=== PATIENT | female | born 1945 | race Caucasian/White ===

== ENCOUNTER → 2018-02-17 18:52 | Outpatient (CLI) | payer MEDICARE, SELFPAY ==
[2018-02-17 19:45] LABS: Anion Gap 8 (5-15); BUN 14 mg/dL (7-18); BUN/Creat Ratio 17.6 RATIO (10-20); Calcium,Total 9.2 mg/dL (8.5-10.1); Chloride 101 mmol/L (98-107); Creatinine, Serum 0.79 mg/dL (0.55-1.02); EST Glomerular Filtration Rate 75 mL/min (>60); Est Glom Filt Rate - Afr Amer 91 mL/min (>60); Glucose 73 mg/dL (74-106); Potassium 4.1 mmol/L (3.5-5.1); Sodium Level 141 mmol/L (136-145)
== END ==
DX: I11.0 Hypertensive heart disease with heart failure (principal); I50.9 Heart failure, unspecified
CPT/HCPCS: 80048

== ENCOUNTER → 2018-05-29 18:40 | Outpatient (CLI) | payer MEDICARE, SELFPAY ==
[2018-05-29 19:03] LABS: Hematocrit 37.3 % (37-47); Hemoglobin 11.5 g/dl (12.0-15.0); Mean Corp Hgb Conc 30.8 g/gl (32-36); Mean Corpuscular Hgb 27.8 pg (27.0-32.0); Mean Corpuscular Volume 90.1 fL (81-99); Mean Platelet Vol. 10.8 fl (6.2-12.0); Platelet Count 217 K/mm3 (150-450); RBC Distribution Width SD 52.1 fl (35.1-43.9); Red Blood Count 4.14 M/mm3 (4.2-5.4)
[2018-05-29 19:04] LABS: Scan Indicated on CBC? Y/N NO
[2018-05-29 19:19] LABS: Vitamin B12 546 pg/mL (211-911); Vitamin D,25 Hydroxy 29.2 ng/mL (29.95-100.01)
[2018-05-29 19:28] LABS: AST(SGOT) 13 U/L (15-37); Alanine Aminotransfer ALT/SGPT 17 U/L (13-56); Albumin, Serum 3.2 g/dL (3.2-5.0); Alkaline Phosphatase 106 U/L (45-117); Anion Gap 8 (5-15); BUN 19 mg/dL (7-18); BUN/Creat Ratio 23.2 RATIO (10-20); Calcium,Total 8.5 mg/dL (8.5-10.1); Chloride 110 mmol/L (98-107); Creatinine, Serum 0.82 mg/dL (0.55-1.02); EST Glomerular Filtration Rate 73 mL/min (>60); Est Glom Filt Rate - Afr Amer 88 mL/min (>60); Globulin 3.1 g/dL (2.2-4.2); Glucose 103 mg/dL (74-106); Potassium 4.4 mmol/L (3.5-5.1); Protein, Total 6.3 g/dL (6.4-8.2); Sodium Level 144 mmol/L (136-145); Thyroid Stim Hormone (TSH) 1.06 uIU/mL (0.358-3.74)
== END ==
PROVIDERS: Visit Provider Nurse Practitioner Adult Health
DX: I11.0 Hypertensive heart disease with heart failure (principal); I50.32 Chronic diastolic (congestive) heart failure; E03.8 Other specified hypothyroidism; E56.8 Deficiency of other vitamins; E53.8 Deficiency of other specified B group vitamins
CPT/HCPCS: 80053; 82306; 82607; 84443; 85027

== ENCOUNTER → 2018-08-28 16:58 | Outpatient (CLI) | payer MEDICARE, SELFPAY ==
[2018-08-28 17:26] LABS: Hematocrit 38.9 % (37-47); Hemoglobin 11.9 g/dl (12.0-15.0); Mean Corp Hgb Conc 30.6 g/gl (32-36); Mean Corpuscular Hgb 27.1 pg (27.0-32.0); Mean Corpuscular Volume 88.6 fL (81-99); Platelet Count 203 K/mm3 (150-450); RBC Distribution Width CV 15.6 % (11.6-14.6); RBC Distribution Width SD 50.6 fl (35.1-43.9); Red Blood Count 4.39 M/mm3 (4.2-5.4); White Blood Count 6.4 K/mm3 (4.4-11.0)
[2018-08-28 17:34] LABS: Scan Indicated on CBC? Y/N NO
[2018-08-28 18:07] LABS: Vitamin B12 578 pg/mL (211-911); Vitamin D,25 Hydroxy 33.4 ng/mL (29.95-100.01)
[2018-08-28 18:13] LABS: ALB/GLOB Ratio 1.1 RATIO (0.9-2.4); AST(SGOT) 13 U/L (15-37); Alanine Aminotransfer ALT/SGPT 18 U/L (13-56); Albumin, Serum 3.4 g/dL (3.2-5.0); Alkaline Phosphatase 117 U/L (45-117); Anion Gap 7 (5-15); BUN 20 mg/dL (7-18); BUN/Creat Ratio 22.2 RATIO (10-20); Calcium,Total 8.7 mg/dL (8.5-10.1); Chloride 106 mmol/L (98-107); EST Glomerular Filtration Rate 65 mL/min (>60); Est Glom Filt Rate - Afr Amer 79 mL/min (>60); Globulin 3.1 g/dL (2.2-4.2); Glucose 74 mg/dL (74-106); Potassium 4.2 mmol/L (3.5-5.1); Protein, Total 6.5 g/dL (6.4-8.2); Sodium Level 140 mmol/L (136-145); Thyroid Stim Hormone (TSH) 1.18 uIU/mL (0.358-3.74)
--- OUTSIDE RECORDS SUMMARY | 2018-11-02 08:04 | XMS RPT_ITS ---
:1945 Author Organization OHIP Care Team Providers Name Role Phone AMPARO CASTELAN (HAO) Attending Unavailable MARISA DIETZ Attending Unavailable MARISA DIETZ Referring Unavailable MARISA DIETZ Referring Unavailable MARISA DIETZ Referring Unavailable Lauren Coughlin ELECTRIC SWITCH REPAIRER-C Attending Unavailable Lauren Coughlin ELECTRIC SWITCH REPAIRER-C Referring Unavailable Lauren Coughlin. ELECTRIC SWITCH REPAIRER-C Primary Care Unavailable GWENDOLYN JAIN Attending Unavailable Primay Care Physicia, No Primary Care Unavailable GWENDOLYN JAIN Referring Unavailable Lauren Coughlin ELECTRIC SWITCH REPAIRER-C Attending Unavailable Lauren Coughlin ELECTRIC SWITCH REPAIRER-C Attending Unavailable Lauren Coughlin. ELECTRIC SWITCH REPAIRER-C Primary Care Unavailable Lauren Coughlin ELECTRIC SWITCH REPAIRER-C Attending Unavailable Lauren Coughlin F. ELECTRIC SWITCH REPAIRER-C Primary Care Unavailable PROBLEMS PROBLEMS DATE TYPE CONDITION / CODE ATTENDING STATUS SOURCE 05/29/2018 Unknown I50.32 - Chronic Lauren Coughlin Active [place] diastolic F. ELECTRIC SWITCH REPAIRER-C Community (congestive[facility] Hospital failure / Repository I50.32(ICD-10) 05/29/2018 Unknown I10 - Essential Lauren Coughlin Active [place] (primary) F. ELECTRIC SWITCH REPAIRER-C Community hypertension / Hospital I10(ICD-10) Repository 05/29/2018 Unknown E03.8 - Other Lauren Coughlin Active [place] specified F. 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 ELECTRIC SWITCH REPAIRER-C Community E56.8(ICD-10) Hospital Repository 05/29/2018 Unknown E53.8 - Deficiency Lauren Coughlin Active [place] of other specified B F. ELECTRIC SWITCH REPAIRER-C Community group vitamins / Hospital E53.8(ICD-10) Repository 02/26/2018 Unknown I11.0 - Hypertensive GWENDOLYN JAIN Active [place] heart disease with [facility] heart failure / Hospital I11.0(ICD-10) Repository 02/16/2018 Active Essential (primary) NA Active [place] hypertension / Clinic Main I10(ICD-10) [place] Repository 02/16/2018 Active Chronic diastolic NA [facility] (congestive[facility] heart [facility] Main failure / [place] I50.32(ICD-10) Repository 02/16/2018 Active Chest pain, NA Active [place] unspecified / Clinic Main R07.9(ICD-10) [place] Repository 12/22/2017 Active Unknown / FLIP, [facility] UNK(Unknown) AMPARO FERRIS) Clinic Main [place] Repository PROCEDURES PROCEDURES No Procedure Records FoundRESULTS RESULTS CBC-COMPLETE BLOOD CNT Collected: 08/28/2018 Status: F Source: [place] NO DIFF 3:15 PM [facility] REPOSITORY TYPE CODE TESTS RESULT OUT OF RANGE REFERENCE UNITS LAB L100.1000 4.4-11.0 K/mm3 Normal WBC 6.4 LAB L100.1200 4.2-5.4 M/mm3 Normal RBC 4.39 LAB L100.1300 12.0-15.0 g/dl Low HGB 11.9 LAB L100.1400 37-47 % Normal HCT 38.9 LAB L100.1500 81-99 fL Normal MCV 88.6 LAB L100.1600 27.0-32.0 pg Normal MCH 27.1 LAB L100.1700 32-36 g/gl Low MCHC 30.6 LAB L100.1810 11.6-14.6 % High RDW CV 15.6 LAB L100.1820 35.1-43.9 fl High RDW SD 50.6 LAB L100.1900 150-450 K/mm3 Normal PLT 203 LAB L100.2000 6.2-12.0 fl Normal MPV 10.0 Performed By: #### L100.0500 #### [facility] [address] [place], [address] VITAMIN B12 Collected: 08/28/2018 Status: F Source: [place] 3:15 PM [facility] REPOSITORY TYPE CODE TESTS RESULT OUT OF RANGE REFERENCE UNITS LAB L503.0105 211-911 pg/mL Normal Vitamin B12 578 Performed By: #### L503.0105, L506.1000 #### [facility] [address] [facility] [place], [address] VITAMIN D,25 HYDROXY Collected: 08/28/2018 Status: F Source: [place] 3:15 PM [facility] REPOSITORY TYPE CODE TESTS RESULT OUT OF RANGE REFERENCE UNITS LAB L506.1000 29.95-100.01 ng/mL Normal Vitamin D 33.4 25-OH Result Comment: Vitamin D 25(OH) Status Range Deficiency <20 ng/mL (50nmol/L) Insuffciency 20 - 30 ng/mL (50 - 75 nmol/L) Sufficiency 30 - 100 ng/mL (75 - 250 nmol/L) Toxicity >100 ng/mL (>250 nmol/L) Performed By: #### L503.0105, L506.1000 #### [facility] [address] [place], [address] COMPREHENSIVE METABOLIC Collected: 08/28/2018 Status: F Source: [facility] 3:15 PM [facility] REPOSITORY TYPE CODE TESTS RESULT OUT OF RANGE REFERENCE UNITS LAB L501.0100 74-106 mg/dL Normal GLU 74 Result Comment: Please note revised GLUCOSE reference range effective 2017. LAB L501.1000 7-18 mg/dL High BUN 20 LAB L501.1100 0.55-1.02 mg/dL Normal CREAT,SERUM 0.90 Result Comment: The validity of the calculated GFR AND GFRAA in patients over 70 years has not been determined. Clinical correlation is essential. LAB L501.1110 >60 mL/min Normal EST GFR 65 Result Comment: Non- GFR Calc LAB L501.1115 >60 mL/min Normal EST GFR - AA 79 Result Comment: GFR Calc LAB L501.1300 10-20 RATIO High BUN/CRE 22.2 LAB L501.1500 6.4-8.2 g/dL T Normal PROT 6.5 LAB L501.1800 3.2-5.0 g/dL Normal ALB 3.4 LAB L501.1950 2.2-4.2 g/dL Normal GLOB 3.1 LAB L501.2000 0.9-2.4 RATIO Normal A/G 1.1 LAB L501.2200 8.5-10.1 mg/dL CA Normal 8.7 LAB L501.4100 15-37 U/L Low AST 13 LAB L501.4305 45-117 U/L Normal ALK P 117 LAB L501.4405 13-56 U/L Normal ALT 18 LAB L501.4600 0.20-1.00 mg/dL T Normal BILI 0.30 LAB L501.5300 136-145 mmol/L NA Normal 140 LAB L501.5600 3.5-5.1 mmol/L K Normal 4.2 LAB L501.5900 98-107 mmol/L CL Normal 106 LAB L501.6100 21.0-32.0 mmol/L Normal CO2 27.0 LAB L501.6200 5-15 Normal GAP 7 Performed By: #### L500.4050, L501.9520 #### [facility] [address] [place], [place], [address] THYROID STIM HORMONE Collected: 08/28/2018 Status: F Source: [place] (TSH) 3:15 PM [facility] REPOSITORY TYPE CODE TESTS RESULT OUT OF RANGE REFERENCE UNITS LAB L501.9520 0.358-3.74 uIU/mL Normal TSH 1.18 Performed By: #### L500.4050, L501.9520 #### [facility] [address] [place], [place], [address] CBC-COMPLETE BLOOD CNT Collected: 05/29/2018 Status: F Source: [place] NO DIFF 3:50 PM [facility] REPOSITORY Order Comment: FAX RESULTS TO @[id number] TYPE CODE TESTS RESULT OUT OF RANGE REFERENCE UNITS LAB L100.1000 4.4-11.0 K/mm3 Normal WBC 6.0 LAB L100.1200 4.2-5.4 M/mm3 Low RBC 4.14 LAB L100.1300 12.0-15.0 g/dl Low HGB 11.5 LAB L100.1400 37-47 % Normal HCT 37.3 LAB L100.1500 81-99 fL Normal MCV 90.1 LAB L100.1600 27.0-32.0 pg Normal MCH 27.8 LAB L100.1700 32-36 g/gl Low MCHC 30.8 LAB L100.1810 11.6-14.6 % High RDW CV 16.0 LAB L100.1820 35.1-43.9 fl High RDW SD 52.1 LAB L100.1900 150-450 K/mm3 Normal PLT 217 LAB L100.2000 6.2-12.0 fl Normal MPV 10.8 Performed By: #### L100.0500 #### [facility] [address] [place], [place], [address] VITAMIN B12 Collected: 05/29/2018 Status: F Source: [place] 3:50 PM [facility] REPOSITORY Order Comment: FAX RESULTS TO @[id number] TYPE CODE TESTS RESULT OUT OF RANGE REFERENCE UNITS LAB L503.0105 211-911 pg/mL Normal Vitamin B12 546 Performed By: #### L503.0105, L506.1000 #### [facility] [address] [place], [address] VITAMIN D,25 HYDROXY Collected: 05/29/2018 Status: F Source: [place] 3:50 PM [facility] REPOSITORY Order Comment: FAX RESULTS TO @[id number] TYPE CODE TESTS RESULT OUT OF REFERENCE UNITS RANGE LAB L506.1000 29.95-100.01 ng/mL Low Vitamin D 29.2 25-OH Result Comment: Vitamin D 25(OH) Status Range Deficiency <20 ng/mL (50nmol/L) Insuffciency 20 - 30 ng/mL (50 - 75 nmol/L) Sufficiency 30 - 100 ng/mL (75 - 250 nmol/L) Toxicity >100 ng/mL (>250 nmol/L) Performed By: #### L503.0105, L506.1000 #### [facility] [address] [place], [address] COMPREHENSIVE METABOLIC Collected: 05/29/2018 Status: F Source: [place] [facility] 3:50 PM [facility] REPOSITORY Order Comment: FAX RESULTS TO @[id number] TYPE CODE TESTS RESULT OUT OF RANGE REFERENCE UNITS LAB L501.0100 74-106 mg/dL Normal GLU 103 Result Comment: Fasting Glucose result from 100 to 125 mg/dL suggests IMPAIRED HOMEOSTASIS per A.D.A. criteria. Please note revised GLUCOSE reference range effective 2017. LAB L501.1000 7-18 mg/dL High BUN 19 LAB L501.1100 0.55-1.02 mg/dL Normal CREAT,SERUM 0.82 Result Comment: The validity of the calculated GFR AND GFRAA in patients over 70 years has not been determined. Clinical correlation is essential. LAB L501.1110 >60 mL/min Normal EST GFR 73 Result Comment: Non- GFR Calc LAB L501.1115 >60 mL/min Normal EST GFR - AA 88 Result Comment: GFR Calc LAB L501.1300 10-20 RATIO High BUN/CRE 23.2 LAB L501.1500 6.4-8.2 g/dL Low T PROT 6.3 LAB L501.1800 3.2-5.0 g/dL Normal ALB 3.2 LAB L501.1950 2.2-4.2 g/dL Normal GLOB 3.1 LAB L501.2000 0.9-2.4 RATIO Normal A/G 1.0 LAB L501.2200 8.5-10.1 mg/dL CA Normal 8.5 LAB L501.4100 15-37 U/L Low AST 13 LAB L501.4305 45-117 U/L Normal ALK P 106 LAB L501.4405 13-56 U/L Normal ALT 17 LAB L501.4600 0.20-1.00 mg/dL T Normal BILI 0.40 LAB L501.5300 136-145 mmol/L NA Normal 144 LAB L501.5600 3.5-5.1 mmol/L K Normal 4.4 LAB L501.5900 98-107 mmol/L High CL 110 LAB L501.6100 21.0-32.0 mmol/L Normal CO2 26.0 LAB L501.6200 5-15 Normal GAP 8 Performed By: #### L500.4050, L501.9520 #### [facility] [address] [facility] [place], [place], [address] THYROID STIM HORMONE Collected: 05/29/2018 Status: F Source: [place] (TSH) 3:50 PM [facility] REPOSITORY Order Comment: FAX RESULTS TO @[id number] TYPE CODE TESTS RESULT OUT OF RANGE REFERENCE UNITS LAB L501.9520 0.358-3.74 uIU/mL Normal TSH 1.06 Performed By: #### L500.4050, L501.9520 #### [facility] [address] [facility] [place], [place], [address] BASIC METABOLIC Collected: 02/17/2018 Status: F Source: [place] PROFILE (BMP) 12:00 AM [facility] REPOSITORY TYPE CODE TESTS RESULT OUT OF RANGE REFERENCE UNITS LAB L501.0100 74-106 mg/dL Low GLU 73 Result Comment: Please note revised GLUCOSE reference range effective 2017. LAB L501.1000 7-18 mg/dL Normal BUN 14 LAB L501.1100 0.55-1.02 mg/dL Normal CREAT,SERUM 0.79 Result Comment: The validity of the calculated GFR AND GFRAA in patients over 70 years has not been determined. Clinical correlation is essential. LAB L501.1110 >60 mL/min Normal EST GFR 75 Result Comment: Non- GFR Calc LAB L501.1115 >60 mL/min Normal EST GFR - AA 91 Result Comment: GFR Calc LAB L501.1300 10-20 RATIO Normal BUN/CRE 17.6 LAB L501.2200 8.5-10.1 mg/dL CA Normal 9.2 LAB L501.5300 136-145 mmol/L NA Normal 141 LAB L501.5600 3.5-5.1 mmol/L K Normal 4.1 LAB L501.5900 98-107 mmol/L CL Normal 101 LAB L501.6100 21.0-32.0 mmol/L Normal CO2 32.0 LAB L501.6200 5-15 Normal GAP 8 Performed By: #### L500.2500 #### [facility] [address] [place], [address] BASIC METABOLIC PANL Collected: 02/16/2018 Status: F Source: [place] 3:07 PM [facility] REPOSITORY TYPE CODE TESTS RESULT OUT OF REFERENCE UNITS RANGE LAB GLU 74-99 mg/dL Glucose 94 Result Comment: The [place] [employer] (ADA) provides guidance for cutoff values for fasting glucose and random glucose. The ADA defines fasting as no caloric intake for at least 8 hours. Fas ting plasma glucose results between 100 to 125 mg/dL indicate increased risk for diabetes (prediabetes). Fasting plasma glucose results greater than or equal to 126 mg/dL meet the criteria for diagnosis of diabetes. In the absence of unequivocal hyperglycemia, results should be confirmed by repeat testing. In a patient with classic symptoms of hyperglycemia or hyperglycemic crisis, random plasma glucose results greater than or equal to 200 mg/dL meet the criteria for diagnosis of diabetes. Reference: Standards of Medical Care in Diabetes 2016, [place] [employer] Association. Diabetes Care. 2016.39(Suppl 1). LAB BUN 7-21 mg/dL BUN 19 LAB CRET 0.58-0.96 mg/dL Creatinine High 1.05 LAB NA 136-144 mmol/L Sodium 142 LAB K 3.7-5.1 mmol/L Potassium 4.9 LAB CL 97-105 mmol/L Chloride 100 LAB CO2 22-30 mmol/L CO2 27 LAB AGAP 9-18 mmol/L Anion Gap 15 LAB CA 8.5-10.2 mg/dL Calcium, Total 9.6 LAB GFRAA eGFR- Amer. >60 LAB GFRNAA . eGFR-All Other Races 52 Result Comment: eGFR (Estimated GFR) Units of measure: mL/min/1.73 meters squared eGFR is derived from the reexpressed MDRD Study equation using the following parameters: serum creatinine, age, gender and race. The creatinine assay has been calibrated to be traceable to IDMS. An eGFR <60 mL/min/1.73m2 for >3 months is consistent with chronic kidney disease. Refer to KDOQI guidelines for clinical interpretation. In patients with unstable renal function, e.g. those with acute kidney injury, the eGFR may not accurately reflect actual GFR. Performed By: #### BMP, MG1 #### [facility] [address] [place], [place] [address] MAGNESIUM Collected: 02/16/2018 Status: F Source: [place] 3:07 PM [facility] REPOSITORY TYPE CODE TESTS RESULT OUT OF REFERENCE UNITS RANGE LAB MG 1.7-2.3 mg/dL Magnesium 2.2 Performed By: #### BMP, MG1 #### [facility] [address] [place], [place] [address] PROGRESS Observed: 02/16/2018 Status: COMPLETED Source: [place] 2:48 PM [facility] REPOSITORY HNO ID: [id number] Author: Marisa Dietz Service: (none) Author Type: Physician Type: Progress Notes Filed: 02/16/2018 5:00 PM Note Text: PERTINENT CARDIAC HISTORY HTN HL CHF - diastolic OBIE - CPAP Chest pain ADHERENCE TO GUIDELINES VALORIE-I or ARB for HF with prior LVEF<40 (NQF 0081) - N/A ASA or Plavix for ASHD (NQF 0067) - met Beta arturo for ASHD with prior MS or prior LVEF<40 (NQF 0070) - N/A Beta arturo for HF with prior LVEF<40 (NQF 0083) - N/A VALORIE-I or ARB for ASHD with DM or prior LVEF<40 (NQF 0066) - N/A Statin therapy for ASHD or FHL or DM - met BMI documented and plan if >25 (NQF 0421) - lifestyle recommendation form Tobacco use screening and referral (NQF 0028) - lifestyle recommendation form Recommendation for whole food, plant based diet - lifestyle recommendation form CLINICAL IMPRESSION/PLAN: Ivet Alvarado is encouraged to observe her salt and caloric restrictions. There is little fluid overloaded today. Basic profile will be checked. Echocardiogram has been ordered for follow-up of her valvular heart disease. This will be scheduled for her in the near future. Chest pain pattern is stable. She has declined further investigation at this time. Her chest discomfort has not been progressive. She is encouraged to use nitroglycerin and let me know if the pattern worsens. She will be seen back in 8 months or as needed. Written and verbal health teaching given to patient, patient verbalizes understanding and agrees with treatment plan. DIAGNOSIS FOR VISIT: CHF Hypertension HISTORY OF PRESENT ILLNESS Ivet Alvarado returns for follow-up of multiple cardiac issues, as noted above. She is seen today on request of her nurse practitioner, who noted a several pound weight gain and increased edema. Her Lasix was increased. She has been eating more out of the garden and adding more salt. Add. Her weight has been up and down 5 pounds but has been within the same general range. She reports stable exercise tolerance. She has taken nitroglycerin infrequently. She continues to have intermittent aching in the left pectoral area. The pattern has been stable. This can last for minutes up to hours and is nonexertional. She reports no orthopnea. She's had minimal edema. She denies syncope, TIAs, amaurosis and claudication. She's had minimal palpitations. ALLERGIES: ALLERGIES No Known Allergies CURRENT OUTPATIENT MEDICATIONS: furosemide (LASIX) 20 mg tablet Take 1.5 tablets by mouth once daily as needed. pravastatin (PRAVACHOL) 40 mg tablet Take 1 tablet by mouth daily at bedtime. traMADol (ULTRAM) 50 mg tablet therapeutic multivitamin w/ iron (THERAPY M) 9 mg iron-400 mcg tablet Take 1 tablet by mouth once daily. rphxbjq-bhvcmpwdc-cgewqwt D3 (OYSTER SHELL CALCIUM-VITAMIN D) 500 mg(1,250mg) -200 unit per tablet Take 1 tablet by mouth once daily. busPIRone (BUSPAR) 5 mg tablet TAKE 1 TABLET BY MOUTH TWICE DAILY PARoxetine (PAXIL) 20 mg tablet GIVE 1 TABLET BY MOUTH ONCE DAILY docusate sodium (COLACE) 100 mg capsule GIVE 1 CAPSULE BY MOUTH TWICE DAILY VITAMIN C 500 mg tablet TAKE 1 TABLET BY MOUTH TWICE DAILY. fluticasone-vilanterol (BREO ELLIPTA) 100-25 mcg/dose inhaler Inhale 1 Inhalation as instructed once daily. DEXILANT 60 mg CpDM TAKE 1 CAPLET BY MOUTH ONCE DAILY metoprolol tartrate, short acting, (LOPRESSOR) 50 mg tablet Take 1 tablet by mouth twice daily. albuterol HFA (VENTOLIN HFA) 90 mcg/actuation inhaler Inhale 2 Puffs as instructed every 4 hours as needed. diclofenac, EC, (VOLTAREN) 75 mg EC tablet Take 1 tablet by mouth twice daily. albuterol (PROVENTIL) 2.5 mg /3 mL (0.083 %) nebulizer solution Use 3 mL via nebulizer four times daily as needed. nitroglycerin sublingual (NITROQUICK) 0.4 mg SL tablet Dissolve 1 tablet under the tongue as needed. FOR CHEST PAIN. IF NO RELIEF CALL 911 aspirin, enteric coated (ASPIR-81) 81 mg EC tablet Take 1 tablet by mouth once daily. INCRUSE ELLIPTA 62.5 mcg/actuation inhaler INHALE 1 PUFF ORALLY ONCE DAILY *DO NOT CLICK OPEN UNTIL READY FOR DOSE* (REPLACES SPIRIVA) *CALL PHARMACY FOR REFILLS* peg 3350-electrolytes (COLYTE) 240-22.72-6.72 -5.84 gram solution Take 4000 ml as directed. Follow written instructions from the doctor's office. COMPOUNDED PRESCRIPTION Raised Toilet seat esqff-3g-rpz-epa-fish oil (OMEGA 3) 350-400 mg cap Take by mouth. COMPOUNDED PRESCRIPTION Oxygen 2LPM per nasal cannula - Use with activity [employer] [facility] [place], [place] c pap supplies dx copd 496 [employer] [facility] [place], [place] Shower bench dx arthritis in both knees 716.96 copd 496 COMPOUNDED PRESCRIPTION CPAP setting at 18 cm H2O with heated humidification mask (per patient preference) and lifetime supplies DX OBIE 327.23 PHYSICAL EXAMINATION: VITAL SIGNS: BP 112/69 Pulse 60 Wt 272 lb 4.8 oz (123.5kg) Chest: Clear to percussion and auscultation. There is mild expiratory prolongation. Trachea is midline. Air entry is equal. Cardiac: Regular rhythm. S1 and S2 are normal. PMI is nondisplaced. There is a soft systolic ejection murmur. Carotids are brisk without bruits. JVP is less than 10 cm. Abdomen: Soft and nontender. There are no pulsatile masses or bruits. No liver enlargement. Bowel sounds are active. Extremities: Trace edema. Pulses are intact and symmetrical. EKG shows sinus bradycardia. There is no change from 08/08/15. Laboratory studies are due. Electronically Signed: Marisa Dietz MD February 16, 2018 2:48 PM CC: No primary care provider on file. EKG1 Observed: 02/16/2018 Status: F Source: [place] 2:25 PM [facility] REPOSITORY NAME : IVET ALVARADO PID : [id number] : 1945 Gender : Female Race : ORD : Procedure Date : Feb 16 2018 14:25:50 Edit Date : Feb 17 2018 08:30:40 Diagnosis:SINUS BRADYCARDIA OTHERWISE NORMAL ECG Confirmed by KAYY BROWN D.O. ([id number]) on 02/17/2018 8:30:37 AM Ventricular Rate : 59 BPM Atrial Rate : 59 BPM P-R Interval : 160 ms QRS Duration : 76 ms Q-T Interval : 400 ms QTC Calculation(Bezet) : 396 ms P [place] : 52 degrees R [place] : 27 degrees T [place] : 60 degrees Test Reason : Location : 136 : [place] Overread By : KAYY BROWN D.O. Edited By : KAYY BROWN D.O. Referred By : J LUIS Acquired by : HOLLIS SPAULDING Observed: 02/16/2018 Status: COMPLETED Source: [place] 2:00 PM [facility] REPOSITORY Office Visit (CAWSTR) IVET ALVARADO ([id number]) 1945 F Date Time Provider Department 02/16/18 2:00 PM MARISA DIETZ During your visit today, we recorded the following information about you: Pulse Blood pressure Weight 60/minute 112/69 123.5 kg Marisa Dietz MD 02/16/2018 5:00 PM Signed PERTINENT CARDIAC HISTORY HTN HL CHF - diastolic OBIE - CPAP Chest pain ADHERENCE TO GUIDELINES VALORIE-I or ARB for HF with prior LVEF<40 (NQF 0081) - N/A ASA or Plavix for ASHD (NQF 0067) - met Beta arturo for ASHD with prior MS or prior LVEF<40 (NQF 0070) - N/A Beta arturo for HF with prior LVEF<40 (NQF 0083) - N/A VALORIE-I or ARB for ASHD with DM or prior LVEF<40 (NQF 0066) - N/A Statin therapy for ASHD or FHL or DM - met BMI documented and plan if >25 (NQF 0421) - lifestyle recommendation form Tobacco use screening and referral (NQF 0028) - lifestyle recommendation form Recommendation for whole food, plant based diet - lifestyle recommendation form CLINICAL IMPRESSION/PLAN: Ivet Alvarado is encouraged to observe her salt and caloric restrictions. There is little fluid overloaded today. Basic profile will be checked. Echocardiogram has been ordered for follow-up of her valvular heart disease. This will be scheduled for her in the near future. Chest pain pattern is stable. She has declined further investigation at this time. Her chest discomfort has not been progressive. She is encouraged to use nitroglycerin and let me know if the pattern worsens. She will be seen back in 8 months or as needed. Written and verbal health teaching given to patient, patient verbalizes understanding and agrees with treatment plan. DIAGNOSIS FOR VISIT: CHF Hypertension HISTORY OF PRESENT ILLNESS Ivet Alvarado returns for follow-up of multiple cardiac issues, as noted above. She is seen today on request of her nurse practitioner, who noted a several pound weight gain and increased edema. Her Lasix was increased. She has been eating more out of the garden and adding more salt. Add. Her weight has been up and down 5 pounds but has been within the same general range. She reports stable exercise tolerance. She has taken nitroglycerin infrequently. She continues to have intermittent aching in the left pectoral area. The pattern has been stable. This can last for minutes up to hours and is nonexertional. She reports no orthopnea. She's had minimal edema. She denies syncope, TIAs, amaurosis and claudication. She's had minimal palpitations. ALLERGIES: ALLERGIES No Known Allergies CURRENT OUTPATIENT MEDICATIONS: furosemide (LASIX) 20 mg tablet Take 1.5 tablets by mouth once daily as needed. pravastatin (PRAVACHOL) 40 mg tablet Take 1 tablet by mouth daily at bedtime. traMADol (ULTRAM) 50 mg tablet therapeutic multivitamin w/ iron (THERAPY M) 9 mg iron-400 mcg tablet Take 1 tablet by mouth once daily. bvljhdg-vehpcysno-ziyfgtf D3 (OYSTER SHELL CALCIUM-VITAMIN D) 500 mg(1,250mg) -200 unit per tablet Take 1 tablet by mouth once daily. busPIRone (BUSPAR) 5 mg tablet TAKE 1 TABLET BY MOUTH TWICE DAILY PARoxetine (PAXIL) 20 mg tablet GIVE 1 TABLET BY MOUTH ONCE DAILY docusate sodium (COLACE) 100 mg capsule GIVE 1 CAPSULE BY MOUTH TWICE DAILY VITAMIN C 500 mg tablet TAKE 1 TABLET BY MOUTH TWICE DAILY. fluticasone-vilanterol (BREO ELLIPTA) 100-25 mcg/dose inhaler Inhale 1 Inhalation as instructed once daily. DEXILANT 60 mg CpDM TAKE 1 CAPLET BY MOUTH ONCE DAILY metoprolol tartrate, short acting, (LOPRESSOR) 50 mg tablet Take 1 tablet by mouth twice daily. albuterol HFA (VENTOLIN HFA) 90 mcg/actuation inhaler Inhale 2 Puffs as instructed every 4 hours as needed. diclofenac, EC, (VOLTAREN) 75 mg EC tablet Take 1 tablet by mouth twice daily. albuterol (PROVENTIL) 2.5 mg /3 mL (0.083 %) nebulizer solution Use 3 mL via nebulizer four times daily as needed. nitroglycerin sublingual (NITROQUICK) 0.4 mg SL tablet Dissolve 1 tablet under the tongue as needed. FOR CHEST PAIN. IF NO RELIEF CALL 911 aspirin, enteric coated (ASPIR-81) 81 mg EC tablet Take 1 tablet by mouth once daily. INCRUSE ELLIPTA 62.5 mcg/actuation inhaler INHALE 1 PUFF ORALLY ONCE DAILY *DO NOT CLICK OPEN UNTIL READY FOR DOSE* (REPLACES SPIRIVA) *CALL PHARMACY FOR REFILLS* peg 3350-electrolytes (COLYTE) 240-22.72-6.72 -5.84 gram solution Take 4000 ml as directed. Follow written instructions from the doctor's office. COMPOUNDED PRESCRIPTION Raised Toilet seat [id number]-2p-fgk-epa-fish oil (OMEGA 3) 350-400 mg cap Take by mouth. COMPOUNDED PRESCRIPTION Oxygen 2LPM per nasal cannula - Use with activity [employer] [facility] [place], [place] c pap supplies dx copd 496 [employer] [facility] [place], [place] Shower bench dx arthritis in both knees 716.96 copd 496 COMPOUNDED PRESCRIPTION CPAP setting at 18 cm H2O with heated humidification mask (per patient preference) and lifetime supplies DX OBIE 327.23 PHYSICAL EXAMINATION: VITAL SIGNS: BP 112/69 Pulse 60 Wt 272 lb 4.8 oz (123.5kg) Chest: Clear to percussion and auscultation. There is mild expiratory prolongation. Trachea is midline. Air entry is equal. Cardiac: Regular rhythm. S1 and S2 are normal. PMI is nondisplaced. There is a soft systolic ejection murmur. Carotids are brisk without bruits. JVP is less than 10 cm. Abdomen: Soft and nontender. There are no pulsatile masses or bruits. No liver enlargement. Bowel sounds are active. Extremities: Trace edema. Pulses are intact and symmetrical. EKG shows sinus bradycardia. There is no change from 08/08/15. Laboratory studies are due. Electronically Signed: Marisa Dietz MD February 16, 2018 2:48 PM CC: No primary care provider on file. Marisa Dietz MD 02/16/2018 2:48 PM Signed LIFESTYLE CHANGE A healthy lifestyle is the most important component of your overall treatment plan. 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 EAT A WHOLE FOOD, PLANT BASED DIET The nutrition your body gets is more important than the medicine you take. What matters most is the overall way you eat. We encourage you to minimize the use of animal products (which include dairy and all meats except fatty fish) and use whole, unprocessed plant foods to provide your protein, vitamins and other nutrients. We have a lot of information to share with you on this topic. This is not a diet. It is a way of life that you will keep with you. EXERCISE REGULARLY It is not important to spend hours in the gym, lifting weights and perspiring heavily. A total of 2-3 hours per week of aerobic (causing you to be moderately short of breath) exercise is sufficient to improve your health. Talk to us before you begin a new exercise program, if you have heart disease or experience shortness of breath or chest pain. REDUCE STRESS Chronic emotional and physical stress leads to disease. Ways of reducing stress include meditation, visualization, prayer, yoga and other forms of relaxation therapy. Consistency is the gates. Find a technique that works for you and do it every day. CULTIVATE RELATIONSHIPS Loneliness and isolation have a major negative impact on health. Seek out others who can love, care for and nurture you. Avoid hurtful relationships. MAINTAIN IDEAL BODY WEIGHT The best way to do this is to do all the things above. Our bodies naturally find the right weight if we keep moving and feed ourselves the right food. If your BMI is greater than 25, we strongly recommend a referral to a weight management program. Please speak to us or your family physician about available programs. AVOID NICOTINE IN ALL FORMS This includes all tobacco products, whether chewed, smoked, vaped, or rubbed on the skin. Smoking cessation programs, which can make use of tobacco substitutes, medications to suppress cravings and behavior management, are available. Please contact your family physician about programs in your area. Referring Provider: MARISA DIETZ [[id number]] Allergies As of Date: 02/16/2018 (No Known Allergies) Date Reviewed: 02/16/2018 Reviewed by: Yandy (Rn) STEVE Spaulding - Fully Assessed Reason for Visit: Established Patient [175] Primary Visit Diagnosis:Essential hypertension [I10] Other Visit Diagnoses:Chronic diastolic CHF (congestive heart failure) (HCC) [I50.32] Chest pain, unspecified type [R07.9] Order(s):ECG COMPLETE W INTERPRETATION [ECG01] Order #: [id number] FUTURE aspirin, enteric coated (ASPIR-81) 81 mg EC tabletTake 1 tablet by mouth once daily.Disp: Rfl: furosemide (LASIX) 20 mg tabletTake 1.5 tablets by mouth once daily as needed.Disp: Rfl: BASIC METABOLIC PNL [SQBMP] Order #: [id number] FUTURE MAGNESIUM BLD [SQMG1] Order #: [id number] FUTURE Prescriptions as of 02/16/2018 Sig: FUROSEMIDE 20 MG TABLET Take 1.5 tablets by mouth onc* PRAVASTATIN 40 MG TABLET Take 1 tablet by mouth daily * TRAMADOL 50 MG TABLET MULTIVITAMIN-IRON 9 MG-FOLIC * Take 1 tablet by mouth once d* CALCIUM CARBONATE 500 MG (1,2* Take 1 tablet by mouth once d* BUSPIRONE 5 MG TABLET TAKE 1 TABLET BY MOUTH TWICE * PAROXETINE 20 MG TABLET GIVE 1 TABLET BY MOUTH ONCE D* DOCUSATE SODIUM 100 MG CAPSULE GIVE 1 CAPSULE BY MOUTH TWICE* VITAMIN C 500 MG TABLET TAKE 1 TABLET BY MOUTH TWICE * FLUTICASONE 100 MCG-VILANTERO* Inhale 1 Inhalation as instru* DEXILANT 60 MG CAPSULE, DELAY* TAKE 1 CAPLET BY MOUTH ONCE D* METOPROLOL TARTRATE 50 MG TAB* Take 1 tablet by mouth twice * ALBUTEROL SULFATE HFA 90 MCG/* Inhale 2 Puffs as instructed * DICLOFENAC SODIUM 75 MG TABLE* Take 1 tablet by mouth twice * ALBUTEROL SULFATE 2.5 MG/3 ML* Use 3 mL via nebulizer four t* NITROGLYCERIN 0.4 MG SUBLINGU* Dissolve 1 tablet under the t* ASPIRIN 81 MG TABLET,DELAYED * Take 1 tablet by mouth once d* INCRUSE ELLIPTA 62.5 MCG/ACTU* INHALE 1 PUFF ORALLY ONCE EZIO* PEG 3350 240 GRAM-ELECTROLYTE* Take 4000 ml as directed. Fo* COMPOUNDED PRESCRIPTION Raised Toilet seat [id number]-* Take by mouth. COMPOUNDED PRESCRIPTION Oxygen 2LPM per nasal cannula* MISCELLANEOUS MEDICAL SUPPLY * c pap supplies dx copd 496 MISCELLANEOUS [employer] SUPPLY * Shower bench dx arthritis * * COMPOUNDED PRESCRIPTION CPAP setting at 18 cm H2O wit* Problem List As Of Date 02/16/2018 Noted Resolved COPD (chronic obstructive pulmonary disease) [J*INVALID FOR* More... Asthma [J45.909] INVALID FOR* Arthritis [M19.90] INVALID FOR* Diverticulosis of colon [K57.30] INVALID FOR* More... Sleep apnea [G47.30] INVALID FOR* More... Palpitations [R00.2] INVALID FOR* Hypertension [I10] INVALID FOR* CHF (congestive heart failure) [I50.9] INVALID FOR* Pain in joint, shoulder region [M25.519] INVALID FOR* Arthritis of shoulder region, left, degenerativ*INVALID FOR* Hypothyroidism [E03.9] More... Elevated fasting glucose [R73.01] INVALID FOR* Arthritis of knee, right [M17.11] INVALID FOR* Arthritis of knee, left [M17.12] INVALID FOR* Obesity, Class III, BMI 40-49.9 (morbid obesity*INVALID FOR* Osteopenia [M85.80] Gait instability [R26.81] INVALID FOR* More... Urinary, incontinence, stress female [N39.3] More... Other instructions from your clinician: LIFESTYLE CHANGE A healthy lifestyle is the most important component of your overall treatment plan. Please give serious thought to the following areas and commit to making usp changes. EAT A WHOLE FOOD, PLANT BASED DIET The nutrition your body gets is more important than the medicine you take. What matters most is the overall way you eat. We encourage you to minimize the use of animal products (which include dairy and all meats except fatty fish) and use whole, unprocessed plant foods to provide your protein, vitamins and other nutrients. We have a lot of information to share with you on this topic. This is not a diet. It is a way of life that you will keep with you. EXERCISE REGULARLY It is not important to spend hours in the gym, lifting weights and perspiring heavily. A total of 2-3 hours per week of aerobic (causing you to be moderately short of breath) exercise is sufficient to improve your health. Talk to us before you begin a new exercise program, if you have heart disease or experience shortness of breath or chest pain. REDUCE STRESS Chronic emotional and physical stress leads to disease. Ways of reducing stress include meditation, visualization, prayer, yoga and other forms of relaxation therapy. Consistency is the gates. Find a technique that works for you and do it every day. CULTIVATE RELATIONSHIPS Loneliness and isolation have a major negative impact on health. Seek out others who can love, care for and nurture you. Avoid hurtful relationships. MAINTAIN IDEAL BODY WEIGHT The best way to do this is to do all the things above. Our bodies naturally find the right weight if we keep moving and feed ourselves the right food. If your BMI is greater than 25, we strongly recommend a referral to a weight management program. Please speak to us or your family physician about available programs. AVOID NICOTINE IN ALL FORMS This includes all tobacco products, whether chewed, smoked, vaped, or rubbed on the skin. Smoking cessation programs, which can make use of tobacco substitutes, medications to suppress cravings and behavior management, are available. Please contact your family physician about programs in your area. Prescriptions ordered this encounter Disp Refills Start End ASPIRIN 81 MG TABLET,DELAYED RELEASE 02/16/2018 Class: Med Update Route: ORAL Sig: Take 1 tablet by mouth once daily. FUROSEMIDE 20 MG TABLET 02/16/2018 Class: Med Update Route: ORAL Sig: Take 1.5 tablets by mouth once daily as needed. Medications Discontinued During This Encounter furosemide (LASIX) 20 mg tablet 30 t* 6 09/11/2015 02/16/2018 Route: ORAL Sig: Take 1 tablet by mouth once daily as needed. Patient taking differently: Take 30 mg by mouth once daily as needed. Disc: Reason for discontinue is not on file. Encounter Status:Closed by MARISA DIETZ MD on 02/16/18 PROGRESS Observed: 02/05/2018 Status: COMPLETED Source: [place] 10:14 AM [facility] REPOSITORY HNO ID: [id number] Author: Alyse Morales Disposition Clerk Service: (none) Author Type: (none) Type: Progress Notes Filed: 02/05/2018 10:15 AM Note Text: Patient is getting home health care. Different physician. Removed dr. forbes as pcp. PROGRESS Observed: 02/05/2018 Status: COMPLETED Source: [place] 10:05 AM [facility] REPOSITORY HNO ID: [id number] Author: Alyse Morales Disposition Clerk Service: (none) Author Type: (none) Type: Progress Notes Filed: 02/05/2018 10:15 AM Note Text: PHMA TEAMLET DOCUMENTATION Provider Action/FYI: Please file labs. PSR Action/FYI: Teamlet has identified patient by name and date of . Team: Dr.Talampas Sarah Griffin Myself ? Last Office Visit:Visit date not found ? Next Office Visit: Visit date not found ? Last BP/Labs: Blood Pressure: Last 3 Encounter BP Readings: Date: BP: 12/22/2017 142/70 03/18/2017 138/76 08/06/2016 137/77 Lipids: Cholesterol, Total (mg/dL) Date Value 01/20/2017 146 05/19/2015 162 HDL Cholesterol (mg/dL) Date Value 01/20/2017 47 05/19/2015 58 LDL Cholesterol (mg/dL) Date Value 01/20/2017 78 05/19/2015 88 Triglyceride (mg/dL) Date Value 01/20/2017 103 05/19/2015 82 HGB A1C: Lab Results Component Value Date HBA1C 5.9 10/10/2015 HBA1C 5.7 06/11/2012 TSH: TSH (uU/mL) Date Value 10/10/2015 1.620 05/19/2015 3.150 ) Care Gap: CHF - HTN - COPD Plan: ? Confirm PCP / Status ? Type of appointment needed: Physical Labs, HM and Immunization: Health Maintenance Due: DTAP,TDAP,TD(1 - Tdap) due on 1964 HEPATITIS C SCREENING due on 1989 - order pending ZOSTER VACCINE (SHINGRIX)(1 of 2) due on 1995 MAMMOGRAM due on 10/16/2016 - order pending Alyse Morales Disposition Clerk CNPTOUTREACH Observed: 02/05/2018 Status: COMPLETED Source: [place] 12:00 AM [facility] [place] [facility] [place] RE[facility]IT[facility] Patient Outreach (INTMWS) IVET ALVARADO ([id number]) 1945 F Date Time Provider Department 02/05/18 ALYSE MORALES ([facility]) INTMWS During your visit today, we recorded the following information about you: Alyse Morales Cma 02/05/2018 10:15 AM Signed PHMA TEAMLET DOCUMENTATION Provider Action/FYI: Please file labs. PSR Action/FYI: Teamlet has identified patient by name and date of . Team: Dr.Talampas Sarah Griffin Myself ? Last Office Visit:Visit date not found ? Next Office Visit: Visit date not found ? Last BP/Labs: Blood Pressure: Last 3 Encounter BP Readings: Date: BP: 12/22/2017 142/70 03/18/2017 138/76 08/06/2016 137/77 Lipids: Cholesterol, Total (mg/dL) Date Value 01/20/2017 146 05/19/2015 162 HDL Cholesterol (mg/dL) Date Value 01/20/2017 47 05/19/2015 58 LDL Cholesterol (mg/dL) Date Value 01/20/2017 78 05/19/2015 88 Triglyceride (mg/dL) Date Value 01/20/2017 103 05/19/2015 82 HGB A1C: Lab Results Component Value Date HBA1C 5.9 10/10/2015 HBA1C 5.7 06/11/2012 TSH: TSH (uU/mL) Date Value 10/10/2015 1.620 05/19/2015 3.150 ) Care Gap: CHF - HTN - COPD Plan: ? Confirm PCP / Status ? Type of appointment needed: Physical Labs, HM and Immunization: Health Maintenance Due: DTAP,TDAP,TD(1 - Tdap) due on 1964 HEPATITIS C SCREENING due on 1989 - order pending ZOSTER VACCINE (SHINGRIX)(1 of 2) due on 1995 MAMMOGRAM due on 10/16/2016 - order pending Alyse [place] Disposition Clerk Alyse [place] Disposition Clerk 02/05/2018 10:15 AM Signed Patient is getting home health care. Different physician. Removed dr. forbes as pcp. Allergies As of Date: 02/05/2018 (No Known Allergies) Date Reviewed: 12/22/2017 Reviewed by: Amparo Castelan (Pa) - Fully Assessed Reason for Visit: PHMA/Care Gap Outreach [[id number]] Primary Visit Diagnosis:Screening mammogram, encounter for [Z12.31] Other Visit Diagnoses:Need for hepatitis C screening test [Z11.59] Essential hypertension [I10] Hypothyroidism, unspecified type [E03.9] Prescriptions as of 02/05/2018 Sig: PRAVASTATIN 40 MG TABLET Take 1 tablet by mouth daily * TRAMADOL 50 MG TABLET MULTIVITAMIN-IRON 9 MG-FOLIC * Take 1 tablet by mouth once d* CALCIUM CARBONATE 500 MG (1,2* Take 1 tablet by mouth once d* BUSPIRONE 5 MG TABLET TAKE 1 TABLET BY MOUTH TWICE * PAROXETINE 20 MG TABLET GIVE 1 TABLET BY MOUTH ONCE D* DOCUSATE SODIUM 100 MG CAPSULE GIVE 1 CAPSULE BY MOUTH TWICE* VITAMIN C 500 MG TABLET TAKE 1 TABLET BY MOUTH TWICE * FLUTICASONE 100 MCG-VILANTERO* Inhale 1 Inhalation as instru* INCRUSE ELLIPTA 62.5 MCG/ACTU* INHALE 1 PUFF ORALLY ONCE EZIO* DEXILANT 60 MG CAPSULE, DELAY* TAKE 1 CAPLET BY MOUTH ONCE D* PEG 3350 240 GRAM-ELECTROLYTE* Take 4000 ml as directed. Fo* METOPROLOL TARTRATE 50 MG TAB* Take 1 tablet by mouth twice * ALBUTEROL SULFATE HFA 90 MCG/* Inhale 2 Puffs as instructed * DICLOFENAC SODIUM 75 MG TABLE* Take 1 tablet by mouth twice * FUROSEMIDE 20 MG TABLET Take 1 tablet by mouth once d* ALBUTEROL SULFATE 2.5 MG/3 ML* Use 3 mL via nebulizer four t* NITROGLYCERIN 0.4 MG SUBLINGU* Dissolve 1 tablet under the t* COMPOUNDED PRESCRIPTION Raised Toilet seat [id number]-* Take by mouth. COMPOUNDED PRESCRIPTION Oxygen 2LPM per nasal cannula* MISCELLANEOUS MEDICAL SUPPLY * c pap supplies dx copd 496 [employer]ISCELL[employer]OUS MEDICAL SUPPLY * Shower bench dx arthritis * * COMPOUNDED PRESCRIPTION CPAP setting at 18 cm H2O wit* Problem List As Of Date 02/05/2018 Noted Resolved COPD (chronic obstructive pulmonary disease) [J*INVALID FOR* More... Asthma [J45.909] INVALID FOR* Arthritis [M19.90] INVALID FOR* Diverticulosis of colon [K57.30] INVALID FOR* More... Sleep apnea [G47.30] INVALID FOR* More... Palpitations [R00.2] INVALID FOR* Hypertension [I10] INVALID FOR* CHF (congestive heart failure) [I50.9] INVALID FOR* Pain in joint, shoulder region [M25.519] INVALID FOR* Arthritis of shoulder region, left, degenerativ*INVALID FOR* Hypothyroidism [E03.9] More... Elevated fasting glucose [R73.01] INVALID FOR* Arthritis of knee, right [M17.11] INVALID FOR* Arthritis of knee, left [M17.12] INVALID FOR* Obesity, Class III, BMI 40-49.9 (morbid obesity*INVALID FOR* Osteopenia [M85.80] Gait instability [R26.81] INVALID FOR* More... Urinary, incontinence, stress female [N39.3] More... Encounter Status:Closed by ALYSE MORALES CMA on 02/05/18 OBSOLETE Observed: 12/23/2017 Status: COMPLETED Source: [place] 12:00 AM [facility] [place] RE[facility] Refill (AGCARDWST) ANA MARIAIVET WYLIE ([id number]) 1945 F Date Time Provider Department 12/23/17 MARISA DIETZWSBill During your visit today, we recorded the following information about you: Corona Madrigal MA 12/23/2017 9:40 AM Signed Patient phones requesting refills as follows: Pending Prescriptions Disp Refills PRAVASTATIN 40 MG TABLET 30 tablet 11 Sig: Take 1 tablet by mouth daily at bedtime. GINETTE: No Please review and advise. Corona Madrigal MA Allergies As of Date: 12/23/2017 (No Known Allergies) Date Reviewed: 12/22/2017 Reviewed by: Amparo Castelan (Pa) - Fully Assessed Reason for Visit: Refill Request [94] Order(s):pravastatin (PRAVACHOL) 40 mg tabletTake 1 tablet by mouth daily at bedtime.Disp: 30 tabletRfl: 11 Prescriptions as of 12/23/2017 Sig: PRAVASTATIN 40 MG TABLET Take 1 tablet by mouth daily * TRAMADOL 50 MG TABLET MULTIVITAMIN-IRON 9 MG-FOLIC * Take 1 tablet by mouth once d* CALCIUM CARBONATE 500 MG (1,2* Take 1 tablet by mouth once d* BUSPIRONE 5 MG TABLET TAKE 1 TABLET BY MOUTH TWICE * PAROXETINE 20 MG TABLET GIVE 1 TABLET BY MOUTH ONCE D* DOCUSATE SODIUM 100 MG CAPSULE GIVE 1 CAPSULE BY MOUTH TWICE* VITAMIN C 500 MG TABLET TAKE 1 TABLET BY MOUTH TWICE * FLUTICASONE 100 MCG-VILANTERO* Inhale 1 Inhalation as instru* INCRUSE ELLIPTA 62.5 MCG/ACTU* INHALE 1 PUFF ORALLY ONCE EZIO* DEXILANT 60 MG CAPSULE, DELAY* TAKE 1 CAPLET BY MOUTH ONCE D* PEG 3350 240 GRAM-ELECTROLYTE* Take 4000 ml as directed. Fo* METOPROLOL TARTRATE 50 MG TAB* Take 1 tablet by mouth twice * ALBUTEROL SULFATE HFA 90 MCG/* Inhale 2 Puffs as instructed * DICLOFENAC SODIUM 75 MG TABLE* Take 1 tablet by mouth twice * FUROSEMIDE 20 MG TABLET Take 1 tablet by mouth once d* ALBUTEROL SULFATE 2.5 MG/3 ML* Use 3 mL via nebulizer four t* NITROGLYCERIN 0.4 MG SUBLINGU* Dissolve 1 tablet under the t* COMPOUNDED PRESCRIPTION Raised Toilet seat [id number]-* Take by mouth. COMPOUNDED PRESCRIPTION Oxygen 2LPM per nasal cannula* MISCELLANEOUS MEDICAL SUPPLY * c pap supplies dx copd 496 MISCELLANEOUS MEDICAL SUPPLY * Shower bench dx arthritis * * COMPOUNDED PRESCRIPTION CPAP setting at 18 cm H2O wit* Problem List As Of Date 12/23/2017 Noted Resolved COPD (chronic obstructive pulmonary disease) [J*INVALID FOR* More... Asthma [J45.909] INVALID FOR* Arthritis [M19.90] INVALID FOR* Diverticulosis of colon [K57.30] INVALID FOR* More... Sleep apnea [G47.30] INVALID FOR* More... Palpitations [R00.2] INVALID FOR* Hypertension [I10] INVALID FOR* CHF (congestive heart failure) [I50.9] INVALID FOR* Pain in joint, shoulder region [M25.519] INVALID FOR* Arthritis of shoulder region, left, degenerativ*INVALID FOR* Hypothyroidism [E03.9] More... Elevated fasting glucose [R73.01] INVALID FOR* Arthritis of knee, right [M17.11] INVALID FOR* Arthritis of knee, left [M17.12] INVALID FOR* Obesity, Class III, BMI 40-49.9 (morbid obesity*INVALID FOR* Osteopenia [M85.80] Gait instability [R26.81] INVALID FOR* More... Urinary, incontinence, stress female [N39.3] More... Prescriptions ordered this encounter Disp Refills Start End PRAVASTATIN 40 MG TABLET 30 t* 11 12/23/2017 Route: ORAL Sig: Take 1 tablet by mouth daily at bedtime. Medications Discontinued During This Encounter pravastatin (PRAVACHOL) 40 mg tablet 30 t* 11 01/15/2017 12/23/2017 Route: ORAL Sig: Take 1 tablet by mouth daily at bedtime. Disc: Reason for discontinue is not on file. Encounter Status:Closed by CORONA MADRIGAL MA on 12/23/17 PROGRESS Observed: 12/22/2017 Status: COMPLETED Source: [place] 1:48 PM [facility] [facility] [place] RE[facility] HNO ID: [id number] Author: Amparo Castelan) Service: (none) Author Type: Physician Appraiser Real Estate Type: Progress Notes Filed: 12/22/2017 2:35 PM Note Text: Amparo Castelan PA-C Department of Orthopaedics [facility] [address] [place] [address] Dept: [phone] Dept December 22, 2017 CHIEF COMPLAINT: Left Knee Pain HPI: Ms. Ivet Alvarado is a 72 year old female. She presents with known bilateral knee osteoarthritis. She tells me that her left knee has been very painful overt he past few months, she has increased pain with standing or with resting too long. Left knee feels swollen. She is not able to tolerate NSAIDs secondary to a cardiac dysrhythmia. She had a corticosteroid injection with Dr. Gudino in 2012, injection was helpful. She has CHF, COPD and is morbidly obese, she is not an appropriate candidate for knee arthroplasty. ASSESSMENT: M17.0 Primary osteoarthritis of both knees (primary encounter diagnosis) M25.562 Acute pain of left knee PLAN: She would like to proceed with left knee corticosteroid injection. We discussed that injection can be repeated every 3 months as needed. We can also try injecting the right knee if injection is helpful for left. She was encouraged to work on weight loss, we also discussed heat, ice and quad strengthening. FOLLOW UP INSTRUCTIONS: As needed. Ms. Ivet Alvarado was advised as to contrast therapies and/or to take analgesics/anti-inflammatories as needed and all contraindications were reviewed. OBJECTIVE: Ms. Ivet Alvarado is a pleasant 72 year old in no apparent distress. Gen:BP 142/70 Pulse 80 Ht 5' 7 (1.70m) Wt 273 lb (123.8kg) BMI 42.75 kg/(m2). nl development, obese, no deformities ENT: Normocephalic, normal hearing, moist mucosa CV: Pulses:DP/PT= 2+ and symmetric, capillary refill < 2 secs, no peripheral edema/varicosities Skin: no rash, bruising or lesions. Good turgor. Psych: cooperative and appropriate, alert and oriented x 3, good mood and affect. Musculoskeletal: KNEE EXAM: Left: Alignment: Valgus deformity, Partially Correctable Range of motion is 3 degrees in extension and 120 degrees of flexion. Extension Lag: < 10 degrees Pain with ROM: Yes Effusion: Slight Tender to the palpation of Patellar tendon, Medial femoral condyle and Medial joint line Pain with patellar compression: Yes Stability: Anterior/Posterior stable Hip Exam: flexion to 80 degrees, full extension, internal/external rotation adequate and no pain with log roll Neurovascular Status: Sensation Intact, Moves foot and ankle up AND down and 2+ dorsalis pedis Right: Alignment: Fixed Valgus Range of motion is 2 degrees in extension and 120 degrees of flexion. Extension Lag: < 10 degrees Pain with ROM: Yes Effusion: Slight Tender to the palpation of Patellar tendon Pain with patellar compression: Yes Stability: Anterior/Posterior stable and Varus/Valgus stable Hip Exam: flexion to 90+ degrees, full extension, internal/external rotation adequate and no pain with log roll Neurovascular Status: Sensation Intact, Moves foot and ankle up AND down and 2+ dorsalis pedis Procedure note: The risk, benefits and alternatives of injection and no injection therapy were discussed. The patient consented for an injection. Time out was conducted. The injection site was prepped with a Chlorhexadine swab. The left anterolateral joint was injected with a 25 gauge needle with 1 cc (6 mg) Celestone, 5 cc Lidocaine 1% Plain. The injection site was then dressed with a bandaid. The patient tolerated the injection well. The patient was instructed to call the office if any adverse local effects occurred or any if any questions or concerns arise. Amparo Castelan PA-C IMAGING: deferred today Supporting Subjective Information Below: Past Medical History: PAST MEDICAL HISTORY Diagnosis Date - Asthma - Basal cell carcinoma 03/17/2012 Forehead (Dr. Leal) - Chronic obstructive pulmonary disease (COPD) (HCC) - Congestive heart failure (HCC) - Hypertension - Hypothyroidism - Obstructive sleep apnea - Osteopenia - Postmenopausal disorder - Urinary, incontinence, stress female related to postmenopausal state as well as CHF on diuretics Past Surgical History: PAST SURGICAL HISTORY Procedure Laterality Date - COLONOSCOPY N/A 08/27/2016 [facility] - LAPAROSCOPIC CHOLEYCYSTECTOMY 11/16/[address] [facility] [address] Leal - PAST SURGICAL HISTORY OF Bilateral Breast Biopsies - negative by patient report - TOTAL ABDOM HYSTERECTOMY Age 30 Hysterectomy, [facility] Family History: FAMILY HISTORY Problem Relation Age of Onset - Breast Cancer Mother - COPD Mother - Cancer Father Eye cancer and leukemia - Hypertension Father - Diabetes Father Social History:Social History Marital status: Spouse name: Years of education: Number of children: Social History Main Topics Smoking status: Former Smoker Packs/day: 2.00 Years: 49.00 Start date: 1957 Quit date: 11/03/2005 Smokeless tobacco: Never Used Alcohol use: No Drug use: No Medications: Current Outpatient Prescriptions: traMADol (ULTRAM) 50 mg tablet therapeutic multivitamin w/ iron (THERAPY M) 9 mg iron-400 mcg tablet Take 1 tablet by mouth once daily. qhzrcei-bzounkjsj-xnpdcwm D3 (OYSTER SHELL CALCIUM-VITAMIN D) 500 mg(1,250mg) -200 unit per tablet Take 1 tablet by mouth once daily. busPIRone (BUSPAR) 5 mg tablet TAKE 1 TABLET BY MOUTH TWICE DAILY PARoxetine (PAXIL) 20 mg tablet GIVE 1 TABLET BY MOUTH ONCE DAILY docusate sodium (COLACE) 100 mg capsule GIVE 1 CAPSULE BY MOUTH TWICE DAILY VITAMIN C 500 mg tablet TAKE 1 TABLET BY MOUTH TWICE DAILY. fluticasone-vilanterol (BREO ELLIPTA) 100-25 mcg/dose inhaler Inhale 1 Inhalation as instructed once daily. INCRUSE ELLIPTA 62.5 mcg/actuation inhaler INHALE 1 PUFF ORALLY ONCE DAILY *DO NOT CLICK OPEN UNTIL READY FOR DOSE* (REPLACES SPIRIVA) *CALL PHARMACY FOR REFILLS* DEXILANT 60 mg CpDM TAKE 1 CAPLET BY MOUTH ONCE DAILY pravastatin (PRAVACHOL) 40 mg tablet Take 1 tablet by mouth daily at bedtime. peg 3350-electrolytes (COLYTE) 240-22.72-6.72 -5.84 gram solution Take 4000 ml as directed. Follow written instructions from the doctor's office. metoprolol tartrate, short acting, (LOPRESSOR) 50 mg tablet Take 1 tablet by mouth twice daily. albuterol HFA (VENTOLIN HFA) 90 mcg/actuation inhaler Inhale 2 Puffs as instructed every 4 hours as needed. diclofenac, EC, (VOLTAREN) 75 mg EC tablet Take 1 tablet by mouth twice daily. furosemide (LASIX) 20 mg tablet Take 1 tablet by mouth once daily as needed. albuterol (PROVENTIL) 2.5 mg /3 mL (0.083 %) nebulizer solution Use 3 mL via nebulizer four times daily as needed. nitroglycerin sublingual (NITROQUICK) 0.4 mg SL tablet Dissolve 1 tablet under the tongue as needed. FOR CHEST PAIN. IF NO RELIEF CALL 911 COMPOUNDED PRESCRIPTION Raised Toilet seat xuohi-5f-ddv-epa-fish oil (OMEGA 3) 350-400 mg cap Take by mouth. COMPOUNDED PRESCRIPTION Oxygen 2LPM per nasal cannula - Use with activity [employer] Misc c pap supplies dx copd 496 [employer] [facility] [place], [place] Shower bench dx arthritis in both knees 716.96 copd 496 COMPOUNDED PRESCRIPTION CPAP setting at 18 cm H2O with heated humidification mask (per patient preference) and lifetime supplies DX OBIE 327.23 No current facility-administered medications for this visit. Allergies: Patient has no known allergies. ROS: General (negative for fatigue, malaise, weight loss/gain) HEENT (negative for headache, earache, recent vision changes, sinus pain, sore throat) Respiratory (no recent shortness of breath, hemoptysis) CV (negative for chest tightness, palpitations) Musculoskeletal (see HPI) Psych (no depression, anxiety) This note was partially generated using [employer] voice recognition system, and there may be some incorrect words, spellings, and punctuation that were not noted in checking the note before saving. DARLEEN Diaz Observed: 12/22/2017 Status: COMPLETED Source: [place] 1:10 PM [facility] REPOSITORY Office Visit (ORTH[facility]) IVET ALVARADO ([id number]) 1945 F Date Time Provider Department 12/22/17 1:10 PM AMPARO CASTELAN) AVA During your visit today, we recorded the following information about you: Pulse Blood pressure Weight Height 80/minute 142/70 123.8 kg 1.702 m Anh Shelton LPN 12/22/2017 1:19 PM Signed Patient d/o left knee pain the past 3 months, states she does get episodes where it feels her knee may jerk out from underneath her. Is using a cane for assistance but is having a lot of issues trying to stand and walk due to the pain. No injury noted to the area. Does get some swelling in the right leg but denies in the left. Amparo Castelan (Hao) 12/22/2017 2:35 PM Signed Amparo Castelan PA-C Department of Orthopaedics Orthopaedics [facility] [address] Dept: [phone] Dept December 22, 2017 CHIEF COMPLAINT: Left Knee Pain HPI: Ms. Ivet Alvarado is a 72 year old female. She presents with known bilateral knee osteoarthritis. She tells me that her left knee has been very painful overt he past few months, she has increased pain with standing or with resting too long. Left knee feels swollen. She is not able to tolerate NSAIDs secondary to a cardiac dysrhythmia. She had a corticosteroid injection with Dr. Gudino in 2012, injection was helpful. She has CHF, COPD and is morbidly obese, she is not an appropriate candidate for knee arthroplasty. ASSESSMENT: M17.0 Primary osteoarthritis of both knees (primary encounter diagnosis) M25.562 Acute pain of left knee PLAN: She would like to proceed with left knee corticosteroid injection. We discussed that injection can be repeated every 3 months as needed. We can also try injecting the right knee if injection is helpful for left. She was encouraged to work on weight loss, we also discussed heat, ice and quad strengthening. FOLLOW UP INSTRUCTIONS: As needed. Ms. Ivet Alvarado was advised as to contrast therapies and/or to take analgesics/anti-inflammatories as needed and all contraindications were reviewed. OBJECTIVE: Ms. Ivet Alvarado is a pleasant 72 year old in no apparent distress. Gen:BP 142/70 Pulse 80 Ht 5' 7 (1.70m) Wt 273 lb (123.8kg) BMI 42.75 kg/(m2). nl development, obese, no deformities ENT: Normocephalic, normal hearing, moist mucosa CV: Pulses:DP/PT= 2+ and symmetric, capillary refill < 2 secs, no peripheral edema/varicosities Skin: no rash, bruising or lesions. Good turgor. Psych: cooperative and appropriate, alert and oriented x 3, good mood and affect. Musculoskeletal: KNEE EXAM: Left: Alignment: Valgus deformity, Partially Correctable Range of motion is 3 degrees in extension and 120 degrees of flexion. Extension Lag: < 10 degrees Pain with ROM: Yes Effusion: Slight Tender to the palpation of Patellar tendon, Medial femoral condyle and Medial joint line Pain with patellar compression: Yes Stability: Anterior/Posterior stable Hip Exam: flexion to 80 degrees, full extension, internal/external rotation adequate and no pain with log roll Neurovascular Status: Sensation Intact, Moves foot and ankle up AND down and 2+ dorsalis pedis Right: Alignment: Fixed Valgus Range of motion is 2 degrees in extension and 120 degrees of flexion. Extension Lag: < 10 degrees Pain with ROM: Yes Effusion: Slight Tender to the palpation of Patellar tendon Pain with patellar compression: Yes Stability: Anterior/Posterior stable and Varus/Valgus stable Hip Exam: flexion to 90+ degrees, full extension, internal/external rotation adequate and no pain with log roll Neurovascular Status: Sensation Intact, Moves foot and ankle up AND down and 2+ dorsalis pedis Procedure note: The risk, benefits and alternatives of injection and no injection therapy were discussed. The patient consented for an injection. Time out was conducted. The injection site was prepped with a Chlorhexadine swab. The left anterolateral joint was injected with a 25 gauge needle with 1 cc (6 mg) Celestone, 5 cc Lidocaine 1% Plain. The injection site was then dressed with a bandaid. The patient tolerated the injection well. The patient was instructed to call the office if any adverse local effects occurred or any if any questions or concerns arise. Amparo Castelan PA-C IMAGING: deferred today Supporting Subjective Information Below: Past Medical History: PAST MEDICAL HISTORY Diagnosis Date - Asthma - Basal cell carcinoma 03/17/2012 Forehead (Dr. Leal) - Chronic obstructive pulmonary disease (COPD) (HCC) - Congestive heart failure (HCC) - Hypertension - Hypothyroidism - Obstructive sleep apnea - Osteopenia - Postmenopausal disorder - Urinary, incontinence, stress female related to postmenopausal state as well as CHF on diuretics Past Surgical History: PAST SURGICAL HISTORY Procedure Laterality Date - COLONOSCOPY N/A 08/27/2016 [facility] - LAPAROSCOPIC CHOLEYCYSTECTOMY 11/16/[address] [facility] [address] Leal - PAST SURGICAL HISTORY OF Bilateral Breast Biopsies - negative by patient report - TOTAL ABDOM HYSTERECTOMY Age 30 Hysterectomy, JOAQUIN Family History: FAMILY HISTORY Problem Relation Age of Onset - Breast Cancer Mother - COPD Mother - Cancer Father Eye cancer and leukemia - Hypertension Father - Diabetes Father Social History:Social History Marital status: Spouse name: Years of education: Number of children: Social History Main Topics Smoking status: Former Smoker Packs/day: 2.00 Years: 49.00 Start date: 1957 Quit date: 11/03/2005 Smokeless tobacco: Never Used Alcohol use: No Drug use: No Medications: Current Outpatient Prescriptions: traMADol (ULTRAM) 50 mg tablet therapeutic multivitamin w/ iron (THERAPY M) 9 mg iron-400 mcg tablet Take 1 tablet by mouth once daily. vrvfauq-zafdqvgnv-vpctlrb D3 (OYSTER SHELL CALCIUM-VITAMIN D) 500 mg(1,250mg) -200 unit per tablet Take 1 tablet by mouth once daily. busPIRone (BUSPAR) 5 mg tablet TAKE 1 TABLET BY MOUTH TWICE DAILY PARoxetine (PAXIL) 20 mg tablet GIVE 1 TABLET BY MOUTH ONCE DAILY docusate sodium (COLACE) 100 mg capsule GIVE 1 CAPSULE BY MOUTH TWICE DAILY VITAMIN C 500 mg tablet TAKE 1 TABLET BY MOUTH TWICE DAILY. fluticasone-vilanterol (BREO ELLIPTA) 100-25 mcg/dose inhaler Inhale 1 Inhalation as instructed once daily. INCRUSE ELLIPTA 62.5 mcg/actuation inhaler INHALE 1 PUFF ORALLY ONCE DAILY *DO NOT CLICK OPEN UNTIL READY FOR DOSE* (REPLACES SPIRIVA) *CALL PHARMACY FOR REFILLS* DEXILANT 60 mg CpDM TAKE 1 CAPLET BY MOUTH ONCE DAILY pravastatin (PRAVACHOL) 40 mg tablet Take 1 tablet by mouth daily at bedtime. peg 3350-electrolytes (COLYTE) 240-22.72-6.72 -5.84 gram solution Take 4000 ml as directed. Follow written instructions from the doctor's office. metoprolol tartrate, short acting, (LOPRESSOR) 50 mg tablet Take 1 tablet by mouth twice daily. albuterol HFA (VENTOLIN HFA) 90 mcg/actuation inhaler Inhale 2 Puffs as instructed every 4 hours as needed. diclofenac, EC, (VOLTAREN) 75 mg EC tablet Take 1 tablet by mouth twice daily. furosemide (LASIX) 20 mg tablet Take 1 tablet by mouth once daily as needed. albuterol (PROVENTIL) 2.5 mg /3 mL (0.083 %) nebulizer solution Use 3 mL via nebulizer four times daily as needed. nitroglycerin sublingual (NITROQUICK) 0.4 mg SL tablet Dissolve 1 tablet under the tongue as needed. FOR CHEST PAIN. IF NO RELIEF CALL 911 COMPOUNDED PRESCRIPTION Raised Toilet seat gxqmj-8k-nra-epa-fish oil (OMEGA 3) 350-400 mg cap Take by mouth. COMPOUNDED PRESCRIPTION Oxygen 2LPM per nasal cannula - Use with activity [employer] Mis c pap supplies dx copd 496 [employer] [facility] [place], [place] Shower bench dx arthritis in both knees 716.96 copd 496 COMPOUNDED PRESCRIPTION CPAP setting at 18 cm H2O with heated humidification mask (per patient preference) and lifetime supplies DX OBIE 327.23 No current facility-administered medications for this visit. Allergies: Patient has no known allergies. ROS: General (negative for fatigue, malaise, weight loss/gain) HEENT (negative for headache, earache, recent vision changes, sinus pain, sore throat) Respiratory (no recent shortness of breath, hemoptysis) CV (negative for chest tightness, palpitations) Musculoskeletal (see HPI) Psych (no depression, anxiety) This note was partially generated using [employer] voice recognition system, and there may be some incorrect words, spellings, and punctuation that were not noted in checking the note before saving. Amparo Castelan PA-C Referring Provider: SELF [200] Allergies As of Date: 12/22/2017 (No Known Allergies) Date Reviewed: 12/22/2017 Reviewed by: Amparo Castelan (Hao) - Fully Assessed Reason for Visit: Left Knee Pain [1208] Primary Visit Diagnosis:Primary osteoarthritis of both knees [M17.0] Other Visit Diagnosis:Acute pain of left knee [M25.562] Order(s):betamethasone acetate-betamethasone sodium phosphate 6 mg injection (CELESTONE)Disp: Rfl: lidocaine 10 mg/mL (1 %) 50 mg injection (XYLOCAINE)Disp: Rfl: Prescriptions as of 12/22/2017 Sig: TRAMADOL 50 MG TABLET MULTIVITAMIN-IRON 9 MG-FOLIC * Take 1 tablet by mouth once d* CALCIUM CARBONATE 500 MG (1,2* Take 1 tablet by mouth once d* BUSPIRONE 5 MG TABLET TAKE 1 TABLET BY MOUTH TWICE * PAROXETINE 20 MG TABLET GIVE 1 TABLET BY MOUTH ONCE D* DOCUSATE SODIUM 100 MG CAPSULE GIVE 1 CAPSULE BY MOUTH TWICE* VITAMIN C 500 MG TABLET TAKE 1 TABLET BY MOUTH TWICE * FLUTICASONE 100 MCG-VILANTERO* Inhale 1 Inhalation as instru* INCRUSE ELLIPTA 62.5 MCG/ACTU* INHALE 1 PUFF ORALLY ONCE EZIO* DEXILANT 60 MG CAPSULE, DELAY* TAKE 1 CAPLET BY MOUTH ONCE D* PRAVASTATIN 40 MG TABLET Take 1 tablet by mouth daily * PEG 3350 240 GRAM-ELECTROLYTE* Take 4000 ml as directed. Fo* METOPROLOL TARTRATE 50 MG TAB* Take 1 tablet by mouth twice * ALBUTEROL SULFATE HFA 90 MCG/* Inhale 2 Puffs as instructed * DICLOFENAC SODIUM 75 MG TABLE* Take 1 tablet by mouth twice * FUROSEMIDE 20 MG TABLET Take 1 tablet by mouth once d* ALBUTEROL SULFATE 2.5 MG/3 ML* Use 3 mL via nebulizer four t* NITROGLYCERIN 0.4 MG SUBLINGU* Dissolve 1 tablet under the t* COMPOUNDED PRESCRIPTION Raised Toilet seat [id number]-* Take by mouth. COMPOUNDED PRESCRIPTION Oxygen 2LPM per nasal cannula* [employer] * c pap supplies dx copd 496 [employer] * Shower bench dx arthritis * * COMPOUNDED PRESCRIPTION CPAP setting at 18 cm H2O wit* Problem List As Of Date 12/22/2017 Noted Resolved COPD (chronic obstructive pulmonary disease) [J*INVALID FOR* More... Asthma [J45.909] INVALID FOR* Arthritis [M19.90] INVALID FOR* Diverticulosis of colon [K57.30] INVALID FOR* More... Sleep apnea [G47.30] INVALID FOR* More... Palpitations [R00.2] INVALID FOR* Hypertension [I10] INVALID FOR* CHF (congestive heart failure) [I50.9] INVALID FOR* Pain in joint, shoulder region [M25.519] INVALID FOR* Arthritis of shoulder region, left, degenerativ*INVALID FOR* Hypothyroidism [E03.9] More... Elevated fasting glucose [R73.01] INVALID FOR* Arthritis of knee, right [M17.11] INVALID FOR* Arthritis of knee, left [M17.12] INVALID FOR* Obesity, Class III, BMI 40-49.9 (morbid obesity*INVALID FOR* Osteopenia [M85.80] Gait instability [R26.81] INVALID FOR* More... Urinary, incontinence, stress female [N39.3] More... Visit Notes: >> Anh Shelton LPN Mon December 22, 2017 1:18 PM Status: Signed Patient d/o left knee pain the past 3 months, states she does get episodes where it feels her knee may jerk out from underneath her. Is using a cane for assistance but is having a lot of issues trying to stand and walk due to the pain. No injury noted to the area. Does get some swelling in the right leg but denies in the left. Prescriptions ordered this encounter Disp Refills Start End BETAMETHASONE ACETATE AND SODIUM JANETH* 12/22/2017 12/22/2017 Route: OTHER LIDOCAINE 10 MG/ML (1 %) INJECTION S* 12/22/2017 12/22/2017 Route: OTHER Encounter Status:Closed by AMPARO CASTELAN PA-C on 12/22/17 ALLERGIES ALLERGIES DATE TYPE / CODE NAME / CODE REACTION SEVERITY SOURCE 08/23/2016 Drug No Known Unknown [facility] Allergy/416 Allergies/W94802 Hospital 468502(SNOM 0388(RXNORM) Repository ED CT) Drug NO KNOWN [facility] Class/76823 ALLERGIES [facility] 1003(SNOMED Repository CT) ENCOUNTERS ENCOUNTERS ADMIT/DISCHARGE ACCOUNT ADMITTING ENCOUNTER LOCATION SOURCE NUMBER CLASS 08/28/2018 [id number] [facility] ing:LABSPEC Repository 06/25/2018 [id number] [facility] ing:LAB.FUTUR Repository E 06/22/2018 [id number] [facility] ing:CCN Repository 05/29/2018 [id number] [facility] ing:LABSPEC Repository 02/25/2018/02/26/20 [id number] Ambulatory [address] [place] Repository 02/17/2018 [id number] [facility] ing:LABSPEC Repository 02/16/2018/02/17/20 [id number] Ambulatory [address] Repository 02/16/2018/06/15/20 [id number] Ambulatory [address] Repository 12/22/2017/12/25/[id number] Repository PAYERS PAYERS ENCOUNTER GUARANTOR PAYER SUBSCRIBER SOURCE 08/28/2018 IVET Wilson [id number] Insurance:[facility] PERTEEDOB: [place] *[place] [facility] [id number] Number: Repository [id number]: 330 [id number] [phone] () Date:[id number] [address] [id number]: 08/28/2018 Secondary NOT GIVENUNK [place] Insurance:SELF PAY [facility] Number: Effective Repository Date:2018-08-28 06/25/2018 Ivet Wilson [id number] Insurance:[facility] PerteeDOB: [place] [facility] [id number] Number: Repository [id number]: [phone] [id number] [phone] () Date:[id number] [address] [address]ZB: 06/25/2018 Secondary NOT GIVENUNK [place] Insurance:SELF PAY [facility] Number: Effective Repository Date:2018-06-25 06/22/2018 Ivet Primary Ivet Wilson [id number] Insurance:[facility] PerteeDOB: [place] *[place] [facility] [id number] Number: Repository [address]Krr: [phone] [id number] [phone] () Date:[id number] [address] [address]VN: 06/22/2018 Secondary NOT GIVENUNK [place] Insurance:SELF PAY [facility] Number: Effective Repository Date:2018-06-22 [facility]/29/2018 [facility] [id number] Insurance:[facility] PerteeDOB: [place] [facility] [id number] Number: Repository [id number]: [phone] [id number] [phone] () Date:[id number] [address] [address]IL: 05/29/2018 Secondary NOT GIVENUNK [place] Insurance:SELF PAY [facility] Number: Effective Repository Date:2018-05-29 02/17/2018 [facility] [place] [id number] Insurance:[facility] PerteeDOB: [place] [facility] [id number] Number: Repository [address]Ays: 330 [id number] [phone] () Date:[id number] [address] [address]RR: 02/17/2018 Secondary NOT GIVENUNK [place] Insurance:SELF PAY [facility] Number: Effective Repository Date:2018-02-17
== END ==
PROVIDERS: Family Provider Nurse Practitioner Adult Health; PCP Nurse Practitioner Adult Health; Referring Provider Nurse Practitioner Adult Health; Visit Provider Nurse Practitioner Adult Health
DX: I11.0 Hypertensive heart disease with heart failure (principal); I50.32 Chronic diastolic (congestive) heart failure; E56.8 Deficiency of other vitamins; E53.8 Deficiency of other specified B group vitamins; F41.1 Generalized anxiety disorder
CPT/HCPCS: 80053; 82306; 82607; 84443; 85027

== ENCOUNTER → 2018-12-25 11:17 | Outpatient (CLI) | payer MEDICARE, SELFPAY ==
[2018-12-25 11:37] LABS: Hematocrit 37.2 % (37-47); Hemoglobin 11.8 g/dl (12.0-15.0); Mean Corp Hgb Conc 31.7 g/gl (32-36); Mean Corpuscular Hgb 27.4 pg (27.0-32.0); Mean Corpuscular Volume 86.3 fL (81-99); Mean Platelet Vol. 10.2 fl (6.2-12.0); Platelet Count 224 K/mm3 (150-450); RBC Distribution Width CV 15.4 % (11.6-14.6); RBC Distribution Width SD 48.8 fl (35.1-43.9); Red Blood Count 4.31 M/mm3 (4.2-5.4)
[2018-12-25 11:38] LABS: Scan Indicated on CBC? Y/N NO
[2018-12-25 11:57] LABS: ALB/GLOB Ratio 0.9 RATIO (0.9-2.4); AST(SGOT) 9 U/L (15-37); Alanine Aminotransfer ALT/SGPT 16 U/L (13-56); Albumin, Serum 3.1 g/dL (3.2-5.0); Alkaline Phosphatase 107 U/L (45-117); Anion Gap 6 (5-15); BUN 19 mg/dL (7-18); BUN/Creat Ratio 26.4 RATIO (10-20); Calcium,Total 9.1 mg/dL (8.5-10.1); Chloride 110 mmol/L (98-107); Cholesterol 140 mg/dL (200); Creatinine, Serum 0.72 mg/dL (0.55-1.02); EST Glomerular Filtration Rate 84 mL/min (>60); Est Glom Filt Rate - Afr Amer 102 mL/min (>60); Globulin 3.3 g/dL (2.2-4.2); Glucose 95 mg/dL (74-106); High Density Lipoprotein 57 mg/dL; Potassium 4.1 mmol/L (3.5-5.1); Protein, Total 6.4 g/dL (6.4-8.2); Sodium Level 146 mmol/L (136-145); Thyroid Stim Hormone (TSH) 0.81 uIU/mL (0.358-3.74); Triglycerides 81 mg/dL; Very Low Density Lipoprotein 16 mg/dL (5-40)
== END ==
PROVIDERS: Family Provider Nurse Practitioner Adult Health; PCP Nurse Practitioner Adult Health; Visit Provider Nurse Practitioner Adult Health
DX: I11.0 Hypertensive heart disease with heart failure (principal); I50.32 Chronic diastolic (congestive) heart failure; E78.2 Mixed hyperlipidemia; F34.1 Dysthymic disorder
CPT/HCPCS: 80053; 80061; 84443; 85027

== ENCOUNTER → 2021-05-30 10:22 | Outpatient (CLI) | payer MEDICARE, MEDICAID, SELFPAY ==
[2021-05-30 12:06] LABS: Absolute Lymphocyte Count 1.62 X10^3/uL (0.83-4.51); Absolute Neutrophil Count 3.3 X10^3/uL (2.0-7.7); Basophil# 0.01 X10^3/uL; Basophil% 0.2 % (0-1); Eosinophils% 1.8 % (0-5); Hematocrit 43.4 % (37-47); Hemoglobin 13.1 g/dL (12.0-15.0); Lymphocyte # 1.62 X10^3/ul (0.83-4.51); Lymphocyte % 28.9 % (19-41); Mean Corp Hgb Conc 30.2 g/dL (32-36); Mean Corpuscular Volume 89.3 fL (81-99); Mean Platelet Vol. 10.6 fl (6.2-12.0); Monocyte# 0.57 X10^3/uL; Monocyte% 10.2 % (0-10); NRBC Flagged by Analyzer 0 % (0-5); Neutrophil # 3.29 X10^3/uL (2.7-7.7); Neutrophil % 58.5 % (47-70); Platelet Count 228 K/mm3 (150-450); RBC Distribution Width CV 14.9 % (11.6-14.6); Red Blood Count 4.86 M/mm3 (4.2-5.4); White Blood Count 5.6 K/mm3 (4.4-11.0)
[2021-05-30 12:23] LABS: ALB/GLOB Ratio 0.8 RATIO (0.9-2.4); AST(SGOT) 13 U/L (15-37); Alanine Aminotransfer ALT/SGPT 16 U/L (13-56); Albumin, Serum 3.2 g/dL (3.2-5.0); Alkaline Phosphatase 104 U/L (45-117); Anion Gap 4 (5-15); BUN 18 mg/dL (7-18); BUN/Creat Ratio 25.6 RATIO (10-20); Calcium,Total 9.5 mg/dL (8.5-10.1); Chloride 107 mmol/L (98-107); Cholesterol 162 mg/dL (200); EST Glomerular Filtration Rate 86 mL/min (>60); Est Glom Filt Rate - Afr Amer 104 mL/min (>60); Glucose 92 mg/dL (74-106); High Density Lipoprotein 64 mg/dL; Potassium 4.1 mmol/L (3.5-5.1); Protein, Total 7.2 g/dL (6.4-8.2); Sodium Level 141 mmol/L (136-145); Triglycerides 110 mg/dL; Very Low Density Lipoprotein 22 mg/dL (5-40)
== END ==
PROVIDERS: PCP Internal Medicine; Referring Provider Internal Medicine; Visit Provider Internal Medicine
DX: I11.0 Hypertensive heart disease with heart failure (principal); I50.9 Heart failure, unspecified
CPT/HCPCS: 36415; 80053; 80061; 85025

== ENCOUNTER 2021-08-30 14:08 | Outpatient (CLI) | payer MEDICARE, SELFPAY ==
[2021-08-30 14:27] LABS: Color, Urine Yellow (Yellow); Glucose, Dipstick Normal (Normal); Ketone-Dipstick Negative (Negative); Leukocyte Esterase-Dipstick 500 /ul (Negative); Nitrite-Dipstick Negative (Negative); Occult Blood-Urine 50 /ul (Negative); Protein-Dipstick 30 mg/dl (Negative); Urine Bilirubin Dipstick Negative (Negative); Urine Clarity Cloudy (Clear); Urine Urobilinogen Normal (Normal)
[2021-08-30 14:34] LABS: White Blood Cells >100 SEEN /hpf (0-5)
[2021-08-30 14:35] LABS: Bacteria 2+ /hpf (None Seen); Mucous, Urine RARE /hpf (<or=2+); Red Blood Cells-Urine 0-5 SEEN /hpf (0-5); Squamous Epithelial Cells - UA 0-5 SEEN /hpf (5-10)
== END 2021-08-30 23:59 | disposition short-term general hospital (02) ==
LOC: LABSPEC 14:09
PROVIDERS: PCP Internal Medicine; Referring Provider Internal Medicine; Visit Provider Internal Medicine
DX: N39.0 Urinary tract infection, site not specified (principal)
CPT/HCPCS: 81001; 87077; 87086; 87088; 87186